=== PATIENT | female | born 1985 | race Caucasian/White ===

== ENCOUNTER 2016-12-18 08:48 | Outpatient (CLI) | payer OTHER ==
--- NOTE | 2016-12-18 10:40 | DIAGNOSTIC IMAGING REPORT ---
PROCEDURE: US COMPLETE PELVIC W/TRANSVAG INDICATION: PELVIC PAIN TECHNIQUE: Transabdominal and endovaginal sanchez scale and color Doppler sonographic images of the female pelvis were obtained. COMPARISON: Pelvic ultrasound 08/12/2014. FINDINGS: TRANSABDOMINAL SCANS: Anteverted uterus. Normal kidneys. TRANSVAGINAL SCANS: Uterus measures 6.8 x 4.6 x 5.4 cm. Myometrium is unremarkable. Endometrium measures 10 mm. Small amount of fluid in the fundal portion of the endometrium. Right ovary measures 7.9 x 3.5 x 9.5 cm with a 7.7 cm dermoid (previously 5.2 cm). Left ovary measures 6.6 x 3.2 x 7.5 cm with a 6.9 cm dermoid (Previously 5.2 cm). There is vascular flow to both ovaries. Small amount of free fluid the cul-de-sac. IMPRESSION: 1. Enlarging bilateral dermoids (7.7 cm on the right and 6.9 cm on the left). 2. Small amount of free fluid in the cul-de-sac
== END 2016-12-18 23:00 | disposition home or self-care (01) ==
LOC: US SRH 08:48
DX: D27.0 Benign neoplasm of right ovary (principal); D27.1 Benign neoplasm of left ovary

== ENCOUNTER 2016-12-31 06:42 | Emergency (ER) | payer OTHER ==
--- NOTE | 2016-12-31 08:01 | ED CLINICAL REPORT ---
Clinical Report - Physicians/Mid Levels [facility] [address] [place] [address] 12/31/2016 6:42 Patient: RADHA BENAVIDES Time Seen: 0645; initial patient contact. Arrived- By private vehicle. Historian- patient. HISTORY OF PRESENT ILLNESS Chief Complaint: ABDOMINAL PAIN. This started last night and is still present. It was abrupt in onset and has been constant but is not gone now. It is described as sharp and cramping and it is described as located in the left lower quadrant and radiating (left back). At its maximum, severity described as moderate. When seen in the E.D., severity described as moderate. Modifying factors- worsened by movement. Relieved by rest. No nausea, loss of appetite, vomiting or diarrhea. No recent travel. Similar symptoms previously: Many times (hx of dermoid cysts. states it feels the same.). Recent medical care: Not recently seen/assessed. REVIEW OF SYSTEMS No constipation, black stools, hematemesis or bloody stools. All systems otherwise negative, except as recorded above. PAST HISTORY See nurses notes. Medications: None. Allergies: No Known Drug Allergy. SOCIAL HISTORY Smoker- current status unknown. No alcohol use or drug use. No recent travel. Is a local resident. ADDITIONAL NOTES The nursing notes have been reviewed. PHYSICAL EXAM Vital Signs: 12/31/2016 06:46 BP: 123/68. HR: 74. RR: 18. O2 saturation: 98%. Temp: 98.6 F. Pain level now: 6/10. Blood pressure normal. Oxygen saturation normal. Appearance: Alert. Oriented X3. No acute distress. CVS: Normal heart rate and rhythm. Heart sounds normal. Pulses normal. Respiratory: No respiratory distress. Breath sounds normal. Chest nontender. Abdomen: Soft. Bowel sounds normal. (mild left lower quandrant tenderness. no masses. no rebound or guarding. no tenderness at mcburney's. negative carrie's). Skin: Skin warm and dry. Normal skin color. No rash. Normal skin turgor. Extremities: Extremities exhibit normal ROM. No lower extremity edema. LABS, X-RAYS, AND EKG Pelvic Sonogram: PROCEDURE: US COMPLETE PELVIC W/TRANSVAG INDICATION: A left-sided pelvic pain, known bilateral ovarian dermoids. TECHNIQUE: Transabdominal and endovaginal sanchez scale and color Doppler sonographic images of the female pelvis were obtained. COMPARISON: 12/18/2016, 08/12/2014, 08/11/2014 CT. FINDINGS: TRANSABDOMINAL SCANS: Anteverted uterus measures about 7.0 5.7 x 4.6 cm. Normal contour and echotexture. The urinary bladder is not filled. Hyperechoic mass is seen in both adnexa adjacent to the ovaries. Normal vascular flow within both ovaries. Small amount of posterior pelvic fluid. TRANSVAGINAL SCANS: The uterus is anteverted in position and has a homogeneous myometrial echotexture. There is a thin flat fluid collection within the endometrium towards the fundus. The endometrium is 6 mm in thickness. The cervix has a normal appearance with a few Nabothian cysts present. The right ovary measures 4.6 x 2.6 x 2.9 cm. Immediately adjacent to, likely arising from the right ovary, there is a round homogeneously hyperechoic mass measuring 7.7 x 5.2 x 5.1 cm. No internal vascularity. The right ovary also contains a peripherally hypervascular round structure measuring about 2.7 cm with heterogeneous internal echoes as to the corpus luteum or hemorrhagic cyst. A small amount of right ramiro ovarian fluid is present. The left ovary measures 5.3 x 2.1 x 3.2 cm and also contains a rounded homogeneously hyperechoic mass measuring 6.4 x 6.2 x 4.1 cm. The left ovary demonstrates normal flow. There is no significant vascularity within the mass. IMPRESSION: 1. No evidence of ovarian torsion. 2. Adnexal masses with known ovarian dermoid tumors. Stable size compared to the most recent prior study and mildly enlarged compared to 2015. Laboratory Tests: UA-Culture if indicated: (ALICIA: 12/31/2016 06:56) ( MsgRcvd 12/31/2016 08:11) Final results Test Result Flag Units (Reference) URINE COLOR YELLOW URINE APPEARANCE CLEAR URINE GLUCOSE NEGATIVE (NEGATIVE) URINE BILIRUBIN NEGATIVE (NEGATIVE) URINE KETONE NEGATIVE (NEGATIVE) URINE SPECIFIC GRAVITY <= 1.005 L (1.010-1.030) URINE PH 6.0 (5.0-8.0) URINE PROTEIN NEGATIVE (NEGATIVE) URINE UROBILINOGEN 1.0 EU/dL (0.2-1.0) URINE NITRITE POSITIVE (NEGATIVE) URINE BLOOD NEGATIVE (NEGATIVE) URINE LEUK ESTERASE NEGATIVE (NEGATIVE) URINE RBC 0-1 rbc/hpf (0-1) URINE WBC 0-1 wbc/hpf (0-1) URINE EPITHELIAL CELLS 0-1 EPI/hpf (0-5) URINE BACTERIA NONE SEEN (NONE SEEN) URINE COMMENT CULTURE INDICATED This is a corrected result 12/31/16 0809:URINE COMMENT previously reported as: CULT NOT INDICATEDURINE CULTURES ARE SET-UP BASED ON THE FOLLOWING CRITERIA:POSITIVE NITRITEPOSITIVE LEUKOCYTE ESTERASEGREATER THAN 10 WHITE BLOOD CELLSMODERATE (2+) OR GREATER BACTERIA CBC w Diff: (ALICIA: 12/31/2016 07:05) ( MsgRcvd 12/31/2016 07:34) Final results Test Result Flag Units (Reference) WHITE BLOOD COUNT 6.1 K/uL (4.5-11.5) RED BLOOD COUNT 4.17 M/uL (4.00-5.20) HEMOGLOBIN 13.2 gm/dL (12.0-16.0) HEMATOCRIT 38.8 % (36.0-46.0) MEAN CELL VOLUME 93 fL (80-100) MEAN CORPUSCULAR HGB 32 pg (26-34) MEAN CORPUSCULAR HGB CONC 34 g/dL (31-37) RED CELL DISTRIBUTION WIDTH 13.8 % (11.6-14.8) PLATELET COUNT 159 K/uL (150-400) NEUTROPHIL % 58.4 % (50-75) LYMPH % 31.5 % (25-40) MONO % 6.7 % (3-14) EOSINOPHIL % 2.8 % (0-4) BASOPHIL % 0.6 % (0-2) CMP: (ALICIA: 12/31/2016 07:05) ( MsgRcvd 12/31/2016 07:59) Final results Test Result Flag Units (Reference) GLUCOSE 97 mg/dL (70-110) BUN 12 mg/dL (7-18) CREATININE 0.7 mg/dL (0.6-1.3) Estimated GFR >60 mL/min Estimated GFR- >60 mL/min Note: Persistent reduction over 3 months in eGFR<60 mL/min/1.73 m2 defines CKD. Patients with eGFR values>=60 mL/min/1.73 m2 may also have CKD if evidence ofpersistent proteinuria. Additional information may be foundat www.[email or web address].org. SODIUM 142 mmol/L (136-145) POTASSIUM 4.0 mmol/L (3.5-5.1) CHLORIDE 107 mmol/L (98-107) CARBON DIOXIDE 25 mmol/L (21-32) CALCIUM 7.9 L mg/dL (8.5-10.1) TOTAL PROTEIN 6.0 L g/dL (6.4-8.2) ALBUMIN 3.5 g/dL (3.3-5.0) BILIRUBIN, TOTAL 0.5 mg/dL (0.0-1.0) ALKALINE PHOSPHATASE 44 L U/L (46-116) AST (SGOT) 12 L U/L (15-37) ALT (SGPT) 18 U/L (12-78) BETA HCG, QUANTITATIVE <1 mIU/mL REFERENCE RANGE:Adult Males: <2 mIU/mLNon- Females: <6 mIU/mL Females:Approximate Approximate hCGGestational Age Range (mIU/mL) 0-1 week 0-501-2 weeks 40-3002-3 weeks 100-54485-0 weeks 500-25537-0 months 5,000-200,0002-3 months 10,000-100,0002nd trimester 3,000-50,0003rd trimester 1,000-50,000 Culture, Urine: (ALICIA: 12/31/2016 06:56) ( MsgRcvd 01/02/2017 08:57) Final results Test Result Flag Units (Reference) CULTURE, URINE DATE: 01/02/17 NO SIGNIFICANT ISOLATION: NO SIGNIFICANT ISOLATION PRELIM REPORT: FINAL REPORT . PROGRESS AND PROCEDURES Course of Care: Patient is a 31-year-old female with history of dermoid cyst presenting for evaluation of left lower quadrant abdominal pain. Labs were studies have been ordered. Patient is agreeable to the treatment plan. Pain medication as been Offered. The patient's workup was remarkable for the findings above. Patient with positive nitrates and urinalysis. Patient will be given antibiotics. The rest of the patient's workup was noted for the findings above. No signs of ovarian torsion. Blood flow to both ovaries are noted to be normal. Discussed with patient workup here in the emergency department including diagnosis, home care, follow-up, and return precautions. All questions have been answered. The patient expressed understanding of these instructions and was agreeable to them. Disposition: Discharged. Condition: good. CLINICAL IMPRESSION Acute left lower quadrant abdominal pain. 12/31/2016 06:46 BP: 123/68. HR: 74. RR: 18. O2 saturation: 98%. Temp: 98.6 F. Pain level now: 6/10. Blood pressure normal. Oxygen saturation normal. Acute urinary tract infection. Ovarian cyst (acute dermoid). INSTRUCTIONS Warnings: GENERAL WARNINGS: Return or contact your physician immediately if your condition worsens or changes unexpectedly, if not improving as expected, or if other problems arise. SPECIFICALLY, return if you develop pain, fever, vomiting, the inability to keep fluids down, blood in vomitus, blood in diarrhea, fainting or lightheadedness. Your Current Medications: CONTINUE TAKING THE FOLLOWING MEDICATIONS: None*. Prescription Medications: Zofran (orally disintegrating tablets) 4 mg: take 1 orally every 8 hours as needed for nausea and vomiting. Dispense ten (10). No refill. Substitution is permissible. Cephalexin 500 mg: take 1 capsule orally every 8 hours for 5 days. No refill. (disp 15 caps) Motrin 600 mg tablets: take 1 tablet orally every 6 hours as needed for pain, stiffness or swelling. Dispense thirty (30). No refill. Substitution is permissible. (take with food) Percocet 5 mg/325 mg: take 1 tablet orally every 6 hours as needed for pain. Dispense twenty (20). No refill. Substitution is permissible. Follow-up: Return to the emergency department as needed. Follow up with your doctor in three days. Reason for referral: recheck today's concerns. Summary of care provided to patient via paper. Screening today revealed the patient's blood pressure to be in the normal range. The patient should follow up with a primary care provider for blood pressure management. Understanding of the discharge instructions verbalized by patient. (Electronically signed by Jorge Ma Dr. 01/03/2017 7:00)
--- NOTE | 2016-12-31 08:01 | ED NURSING NOTES ---
Clinical Report - Nurses [facility] [address] [place] [address] 12/31/2016 6:42 Patient: RADHA BENAVIDES TRIAGE Triage time 06:46. Acuity: LEVEL 3. Chief Complaint: ABDOMINAL PAIN and NAUSEA. --06:53 Ila Poe R.N. 06:46 12/31/16. BP: 123/68 taken on the left arm, while lying. HR: 74 (regular and normal rate). RR: 18 (regular and unlabored). O2 saturation: 98% on room air. Temp: 98.6 F (oral). Pain level now: 12/05. --06:53 Ila Poe R.N. Weight: 63.5 kg stated. Height/Length: 65 inches Per Patient. BMI: 23.3. --06:47 Ila Poe R.N. Medications None. --06:52 Ila Poe R.N. Allergies No Known Drug Allergy. --06:50 Ila Poe R.N. History Arrived by private vehicle. Historian: patient. Unaccompanied. Primary physician (none). This started last night. ( pt c/o LLQ pain radiating to left flank states she has large dermoid cysts and pain is worse before periods and will not go away, states supposed to have surgery to have problem taken care of.). 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 PAST MEDICAL HX: Immunizations: up-to-date. Last normal menstrual period- December 23, 2016. Sexual history - sexually active. Uses control pills. SOCIAL HX: Light tobacco smoker (cigarette)- less than 1/2 a pack per day. Occasional alcohol use. No infectious disease exposure. No known contact with a sick individual. ABUSE ASSESSMENT: No report of abuse. SELF HARM ASSESSMENT: A self harm assessment was performed. The patient answered "no" to the question "Have you recently felt down, depressed, or hopeless?", "Have you noticed less interest or pleasure in doing things?", "Do you have thoughts of harming or killing yourself?", "Are you here because you tried to hurt yourself?", "Have you ever tried to hurt yourself before today?", "Have you recently had thoughts about harming or killing others?" and "Do you have any dangerous items in your possession?". FALL RISK ASSESSMENT: Fall risk assessment completed. No fall risk identified. NUTRITIONAL RISK ASSESSMENT: The nutritional risk assessment revealed no deficiencies. FUNCTIONAL ASSESSMENT: Functional assessment: no impairments noted. LEARNING NEEDS ASSESSMENT: The learning needs assessment revealed no barriers. SKIN INTEGRITY ASSESSMENT: Skin integrity risk assessment completed. No skin integrity risk identified. --06:53 Ila Poe R.N. PROBLEMS: Cellulitis. Ovarian Cyst. Abdominal Pain. Immunizations. LNMP - Last Normal Menstrual Period. --06:52 Ila Poe R.N. ADDITIONAL SURGERIES: . Tubal Ligation. --06:52 Ila Poe R.N. Interventions ID band on patient. To treatment room. --06:53 Ila Poe R.N. PHYSICAL ASSESSMENT Ambulatory to room. GENERAL / NEURO / PSYCH: Alert. Oriented X 4. Appears in pain. HEENT: Mucous membranes are pink. RESPIRATORY: Respirations not labored. Breath sounds within normal limits. CVS: Normal sinus rhythm noted. Capillary refill less than 2 seconds. GI / : Abdomen soft. Abdominal tenderness in the left lower quadrant. Bowel sounds within normal limits. SKIN: Skin is warm and dry. --06:54 Ila Poe R.N. NURSING PROGRESS NOTES Patient gowned. Reassurance given. Two patient identifiers checked. Call light placed in reach. Side rails up x 1. Bed placed in lowest position. Brakes of bed on. Patient ready for evaluation- chart flagged. --06:54 Ila Poe R.N. 07:00 12/31/2016 Site #1 started via IV in the left forearm with an 20g angiocath, with aseptic technique and good blood return; one attempt. Saline lock flushed with 10 mL saline. --07:11 Ila Poe R.N. 07:05 12/31/2016 Started bag #1 1000 mL IV Fluids IV NS (Saline); bolus of 1000 mL wide open then over 1 hour(s) via site #1. Allergies verified and confirmed 5 rights. IV patency established. IV site checked: no pain, redness, or swelling. IV flushed thoroughly pre- and post-medication administration. --07:12 Ila Poe R.N. 07:06 12/31/2016 Morphine IVP 4 mg given over 2 minute(s) via site #1. Allergies verified, confirmed 5 rights and sedative warning given to the patient. IV patency established. IV site checked: no pain, redness, or swelling. IV flushed thoroughly pre- and post-medication administration. IVP given by RN. --07:13 Ila Poe R.N. ( report taken from candi monroe to assume coverage. pt. resting quietly, awaiting US.). --07:22 Danni Jones R.N. US done at bedside. --08:33 Diandra Sommer R.N. 08:25. Reassessment after fluids administered, procedure and medication administered. She is calm and resting quietly. Overall patient status is improved- she states feels better. SKIN: Skin is warm and dry. --08:34 Diandra Sommer R.N. 08:24 12/31/2016 Keflex (Cephalexin) PO Capsules 500 mg given. Allergies verified and confirmed 5 rights. --08:34 Diandra Sommer R.N. 08:24 12/31/2016 Toradol IVP 30 mg given over 2 minute(s) via site #1. Allergies verified and confirmed 5 rights. IV patency established. IV site checked: no pain, redness, or swelling. IV flushed thoroughly pre- and post-medication administration. IVP given by RN. --08:35 Diandra Sommer R.N. 08:25 12/31/2016 IV Fluids IV NS Discontinued: bag #1 completed upon discharge. Total amount infused: 1000 mL. --08:35 Diandra Sommer R.N. 08:27 12/31/2016 Site #1 removed upon discharge. Catheter intact. Bandaid applied. --08:37 Diandra Sommer R.N. DISPOSITION / DISCHARGE Departure time: 824. Condition at departure: improved and stable. No learning barriers present. Discharge instructions provided and reviewed with the patient. Reviewed medication(s). Prescription(s) given to the patient. Patient verbalized understanding. Written instructions provided in Nauruan. The patient was discharged home and accompanied by phoned a friend. She left the Emergency Department ambulatory and via private vehicle. FALL RISK ASSESSMENT: Fall risk assessment completed. No fall risk identified. --08:32 Diandra Sommer R.N. 08:30 12/31/16. BP: 109/64. HR: 51. RR: 16. O2 saturation: 98%. Pain level now: 08/07. --08:32 Diandra Sommer R.N. Locked/Released at 12/31/2016 8:37 by Diandra Sommer R.N.
--- NOTE | 2016-12-31 08:01 | ED ORDER SUMMARY ---
..... Patient: RADHA BENAVIDES OrderSheet [facility] VisitID: [id number] [address] [place] [address] 31y, F Registration Date/Time: 12/31/2016 ORDER SHEET Weight: 63.5 kg (stated) Allergies: No Known Drug Allergy GENERAL ORDERS: US Pelvic Complete w Transvag Urgent (06:54 12/31/2016 Kenrtell Rios) (Ack 6:56 AMcQuoid ER Tech1) (8:13 Milady R.N.) CBC w Diff Urgent (06:55 12/31/2016 Kentrell Rios) (Ack 6:56 AMcQuoid ER Tech1) (6:59 AMcQuoid ER Tech1) CMP Urgent (06:55 12/31/2016 Kentrell Rios) (Ack 6:56 AMcQuoid ER Tech1) (6:59 AMcQuoid ER Tech1) UA-Culture if indicated Urgent (06:55 12/31/2016 Kentrell Rios) (Ack 6:56 AMcQuoid ER Tech1) (6:59 AMcQuoid ER Tech1) Serum Quantitative Urgent (06:55 12/31/2016 Kentrell Rios) (Ack 6:56 AMcQuoid ER Tech1) (6:59 AMcQuoid ER Tech1) Pulse oximeter (06:55 12/31/2016 Kentrell Rios) (Ack 6:56 AMcQuoid ER Tech1) (7:09 Argelia R.N.) MEDICATION ORDERS: Keflex PO 500 mg (NOW) (07:58 12/31/2016 Kentrell Rios) (Ack 8:14 Milady R.NCinthya) (8:34 Milady R.NCinthya) IV FLUIDS: IV NS : initial bolus 1000 mL (1000 mL/hr), then none - for X1 (NOW) (06:54 12/31/2016 Kentrell Rios) (7:12 Argelia R.N.) Morphine IV 4 mg (HIGH ALERT MEDICATION, NOW) (06:54 12/31/2016 Kentrell Rios) (7:13 Argelia R.N.) Toradol IV 30 mg (NOW) (07:47 12/31/2016 Kentrell Rios) (Ack 8:13 Milady Gupta) (8:34 Milady Gupta) ORDER SHEET NOTES: [Electronically signed by Diandra Sommer R.N. (08:37 12/31/2016)] [Electronically signed by Jorge Ma Dr. (07:00 01/03/2017)] [Electronically locked/signed by Diandra Sommer R.N. (08:37 12/31/2016)]
--- NOTE | 2016-12-31 08:01 | ED ORDER SUMMARY ---
..... Patient: RADHA BENAVIDES OrderSheet [facility] VisitID: [id number] [address] [place] [address] 31y, F Registration Date/Time: 12/31/2016 ORDER SHEET Weight: 63.5 kg (stated) Allergies: No Known Drug Allergy GENERAL ORDERS: US Pelvic Complete w Transvag Urgent (06:54 12/31/2016 Kentrell Rios) (Ack 6:56 AMcQuoid ER Tech1) (8:13 Milady R.N.) CBC w Diff Urgent (06:55 12/31/2016 Kentrell Rios) (Ack 6:56 AMcQuoid ER Tech1) (6:59 AMcQuoid ER Tech1) CMP Urgent (06:55 12/31/2016 Kentrell Rios) (Ack 6:56 AMcQuoid ER Tech1) (6:59 AMcQuoid ER Tech1) UA-Culture if indicated Urgent (06:55 12/31/2016 Kentrell Rios) (Ack 6:56 AMcQuoid ER Tech1) (6:59 AMcQuoid ER Tech1) Serum Quantitative Urgent (06:55 12/31/2016 Kentrell Rios) (Ack 6:56 AMcQuoid ER Tech1) (6:59 AMcQuoid ER Tech1) Pulse oximeter (06:55 12/31/2016 Kentrell Rios) (Ack 6:56 AMcQuoid ER Tech1) (7:09 Argelia R.N.) MEDICATION ORDERS: Keflex PO 500 mg (NOW) (07:58 12/31/2016 Kentrell Rios) (Ack 8:14 Milady R.NCinthya) (8:34 Milady R.NCinthya) IV FLUIDS: IV NS : initial bolus 1000 mL (1000 mL/hr), then none - for X1 (NOW) (06:54 12/31/2016 Kentrell Rios) (7:12 Argelia R.N.) Morphine IV 4 mg (HIGH ALERT MEDICATION, NOW) (06:54 12/31/2016 Kentrell Rios) (7:13 Agrelia R.N.) Toradol IV 30 mg (NOW) (07:47 12/31/2016 Kentrell Rios) (Ack 8:13 Milady Gupta) (8:34 Milady Gupta) ORDER SHEET NOTES: [Electronically signed by Diandra Sommer R.N. (08:37 12/31/2016)] [Electronically signed by Jorge Ma Dr. (07:00 01/03/2017)] [Electronically locked/signed by Diandra Sommer R.N. (08:37 12/31/2016)]
--- NOTE | 2016-12-31 09:15 | DIAGNOSTIC IMAGING REPORT ---
PROCEDURE: US COMPLETE PELVIC W/TRANSVAG INDICATION: A left-sided pelvic pain, known bilateral ovarian dermoids. TECHNIQUE: Transabdominal and endovaginal sanchez scale and color Doppler sonographic images of the female pelvis were obtained. COMPARISON: 12/18/2016, 08/12/2014, 08/11/2014 CT. FINDINGS: TRANSABDOMINAL SCANS: Anteverted uterus measures about 7.0 5.7 x 4.6 cm. Normal contour and echotexture. The urinary bladder is not filled. Hyperechoic mass is seen in both adnexa adjacent to the ovaries. Normal vascular flow within both ovaries. Small amount of posterior pelvic fluid. TRANSVAGINAL SCANS: The uterus is anteverted in position and has a homogeneous myometrial echotexture. There is a thin flat fluid collection within the endometrium towards the fundus. The endometrium is 6 mm in thickness. The cervix has a normal appearance with a few Nabothian cysts present. The right ovary measures 4.6 x 2.6 x 2.9 cm. Immediately adjacent to, likely arising from the right ovary, there is a round homogeneously hyperechoic mass measuring 7.7 x 5.2 x 5.1 cm. No internal vascularity. The right ovary also contains a peripherally hypervascular round structure measuring about 2.7 cm with heterogeneous internal echoes as to the corpus luteum or hemorrhagic cyst. A small amount of right ramiro ovarian fluid is present. The left ovary measures 5.3 x 2.1 x 3.2 cm and also contains a rounded homogeneously hyperechoic mass measuring 6.4 x 6.2 x 4.1 cm. The left ovary demonstrates normal flow. There is no significant vascularity within the mass. IMPRESSION: 1. No evidence of ovarian torsion. 2. Adnexal masses with known ovarian dermoid tumors. Stable size compared to the most recent prior study and mildly enlarged compared to 2015.
--- NOTE | 2017-01-03 07:00 | ED MED RECONCILIATION SUMMARY ---
Patient: RADHA BENAVIDES Medication Reconciliation Report Located Within [facility] VisitID: [id number] [address] [place] [address] 31y, F Registration Date/Time: 12/31/2016 Weight: 63.5 kg Height/Length: 65 in. BMI: 23.3 ALLERGIES: No Known Drug Allergy The patient's Home Medications are listed below: NONE. The source(s) of the original Home Medication information: Not obtained. The following Medications were given to the patient in the Emergency Department: IV NS IV Fluids bolus 1000 mL wide open, administered: 12/31/2016 7:05:00 AM Morphine [IVP] IVP 4 mg, administered: 12/31/2016 7:06:00 AM Keflex [PO] PO 500 mg, administered: 12/31/2016 8:24:00 AM Toradol [IVP] IVP 30 mg, administered: 12/31/2016 8:24:00 AM The following Medications were prescribed to the patient: Zofran (orally disintegrating tablets) 4 mg: take 1 orally every 8 hours as needed for nausea and vomiting. Dispense ten (10). No refill. Substitution is permissible. -- Jorge Ma Dr. Cephalexin 500 mg: take 1 capsule orally every 8 hours for 5 days. No refill.(disp 15 caps) -- Jorge Ma Dr. Motrin 600 mg tablets: take 1 tablet orally every 6 hours as needed for pain, stiffness or swelling. Dispense thirty (30). No refill. Substitution is permissible.(take with food) -- Jorge Ma Dr. Percocet 5 mg/325 mg: take 1 tablet orally every 6 hours as needed for pain. Dispense twenty (20). No refill. Substitution is permissible. -- Jorge Ma Dr.
--- NOTE | 2017-01-03 07:00 | ED DISCHARGE INSTRUCTIONS ---
Patient: RADHA BENAVIDES General Instructions [facility] VisitID: [id number] [place] [address] 31y, F Registration Date/Time: 12/31/2016 Acute left lower quadrant abdominal pain. 12/31/2016 06:46 BP: 123/68. HR: 74. RR: 18. O2 saturation: 98%. Temp: 98.6 F. Pain level now: 10. Blood pressure normal. Oxygen saturation normal. Acute urinary tract infection. Ovarian cyst (acute dermoid). INSTRUCTIONS Warnings: GENERAL WARNINGS: Return or contact your physician immediately if your condition worsens or changes unexpectedly, if not improving as expected, or if other problems arise. SPECIFICALLY, return if you develop pain, fever, vomiting, the inability to keep fluids down, blood in vomitus, blood in diarrhea, fainting or lightheadedness. Your Current Medications: CONTINUE TAKING THE FOLLOWING MEDICATIONS: None*. Prescription Medications: Zofran (orally disintegrating tablets) 4 mg: take 1 orally every 8 hours as needed for nausea and vomiting. Dispense ten (10). No refill. Substitution is permissible. Cephalexin 500 mg: take 1 capsule orally every 8 hours for 5 days. No refill. (disp 15 caps) Motrin 600 mg tablets: take 1 tablet orally every 6 hours as needed for pain, stiffness or swelling. Dispense thirty (30). No refill. Substitution is permissible. (take with food) Percocet 5 mg/325 mg: take 1 tablet orally every 6 hours as needed for pain. Dispense twenty (20). No refill. Substitution is permissible. Follow-up: Return to the emergency department as needed. Follow up with your doctor in three days. Reason for referral: recheck today's concerns. Summary of care provided to patient via paper. Screening today revealed the patient's blood pressure to be in the normal range. The patient should follow up with a primary care provider for blood pressure management. Understanding of the discharge instructions verbalized by patient. ADDITIONAL INFORMATION Abdominal Pain, Unknown Cause (Female) The exact cause of your abdominal (stomach) pain is not certain. This does not mean that this is something to worry about, or the right tests were not done. Everyone likes to know the exact cause of the problem, but sometimes with abdominal pain, there is no clear-cut cause, and this could be a good thing. The good news is that your symptoms can be treated, and you will feel better. Your condition does not seem serious now; however, sometimes the signs of a serious problem may take more time to appear. For this reason,it is important for you to watch for any new symptoms, problems,or worsening of your condition. Over the next few days, the abdominal pain may come and go, or be continuous. Other common symptoms can include nausea and vomiting. Sometimes it can be difficult to tell if you feel nauseous, you may just feel bad and not associate that feeling with nausea. Constipation, diarrhea, and a fever may go along with the pain. The pain may continue even if treated correctly over the following days. Depending on how things go, sometimes the cause can become clear and may require further or different treatment. Additional evaluations, medications, or tests may be needed. Home care Your health care provider may prescribe medications for pain, symptoms, or an infection. Follow the health care provider's instructions for taking these medications. General care Rest until your next exam. No strenuous activities. Try to find positions that ease discomfort. A small pillow placed on the abdomen may help relieve pain. Something warm on your abdomen (such as a heating pad) may help, but be careful not to burn yourself. Diet Do not force yourself to eat, especially if having cramps, vomiting, or diarrhea. Water is important so you do not get dehydrated. Soup may also be good. Sports drinks may also help, especially if they are not too acidic. Make sure you don't drink sugary drinks as this can make things worse. Take liquids in small amounts. Do not guzzle them. Caffeine sometimes makes the pain and cramping worse. Avoid dairy products if you have vomiting or diarrhea. Don't eat large amounts at a time. Wait a few minutes between bites. Eat a diet low in fiber (called a low-residue diet). Foods allowed include refined breads, white rice, fruit and vegetable juices without pulp, tender meats. These foods will pass more easily through the intestine. Avoid whole-grain foods, whole fruits and vegetables, meats, seeds and nuts, fried or fatty foods, dairy, alcohol and spicy foods until your symptoms go away. Follow-up care Follow up with your health care provider as instructed, or if your pain does not begin to improve in the next 24 hours. When to seek medical care Seek prompt medical care if any of the following occur: Pain gets worse or moves to the right lower abdomen New or worsening vomiting or diarrhea Swelling of the abdomen Unable to pass stool for more than three days Fever of 100.4F (38C) or higher, or as directed by your healthcare provider. Blood in vomit or bowel movements (dark red or black color) Jaundice (yellow color of eyes and skin) Weakness, dizziness Chest, arm, back, neck or jaw pain Unexpected vaginal bleeding or missed period Call 911 Call emergency services if any of the following occur: Trouble breathing Confusion Fainting or loss of consciousness Rapid heart rate Seizure Bladder Infection,Female (Adult) A bladder infection ("cystitis" or "UTI") usually causes a constant urge to urinate and a burning when passing urine. Urine may be cloudy, smelly or dark. There may be pain in the lower abdomen. A bladder infection occurs when bacteria from the vaginal area enter the bladder opening (urethra). This can occur from sexual intercourse, wearing tight clothing, dehydration and other factors. Home Care: Drink lots of fluids (at least 6-8 glasses a day, unless you must restrict fluids for other medical reasons). This will force the medicine into your urinary system and flush the bacteria out of your body. Avoid sexual intercourse until your symptoms are gone. Avoid caffeine, alcohol and spicy foods. These can irritate the bladder. A bladder infection is treated with antibiotics. You may also be given Pyridium (generic = phenazopyridine) to reduce the burning sensation. This medicine will cause your urine to become a bright orange color. The orange urine may stain clothing. You may wear a pad or panty-liner to protect clothing. Preventing Future Infections: Always wipe from front to back after a bowel movement. Keep the genital area clean and dry. Drink plenty of fluids each day to avoid dehydration. Both sexual partners should wash before intercourse. Urinate right after intercourse to flush out the bladder. Wear cotton underwear and cotton-lined panty hose; avoid tight-fitting pants. If you are on control pills and are having frequent bladder infections, discuss with your doctor. Follow Up: Return to this facility or see your doctor if ALL symptoms are not gone after three days of treatment. Get Prompt Medical Attention if any of the following occur: Fever of 100.4F (38C) or higher, or as directed by your healthcare provider No improvement by the third day of treatment Increasing back or abdominal pain Repeated vomiting; unable to keep medicine down Weakness, dizziness or fainting Vaginal discharge Pain, redness or swelling in the labia (outer vaginal area) Ovarian Cyst The ovary is a small organ located on each side of the uterus. During each menstrual cycle a tiny egg sac forms in the ovary. If the egg is released but does not occur, this sac usually dissolves. Sometimes, the sac may fill with fluid. It then enlarges into a painful cyst. Usually the cyst will rupture or shrink on its own. In either case, the pain gradually goes away over the next 1-3 days. If the cyst does not shrink or rupture, it may cause continued pain. Home Care: Rest in bed and avoid heavy exertion until you are feeling better. Heat to the lower abdomen usually helps (heating pad or hot packs -- a small towel soaked in hot water). You may use acetaminophen (Tylenol) or ibuprofen (Motrin, Advil) to control pain, unless another pain medicine was prescribed. [NOTE: If you have chronic liver or kidney disease or ever had a stomach ulcer or GI bleeding, talk with your doctor before using these medicines.] Follow Up: See your doctor within the next 2-3 days if your pain doesnt improve. Otherwise, follow up with your doctor after your next period or as directed by our staff. Get Prompt Medical Attention if any of the following occur: Pain worsens or fails to respond to the above measures Fever of 100.4F (38C) or higher, or as directed by your healthcare provider Heavy vaginal bleeding (soaking one pad an hour for three hours) You feel weak or dizzy Fainting Passage of a pink or sanchez tissue with menstrual bleeding Pelvic Pain, Uncertain Cause Based on your visit today, the exact cause of your pelvic pain is not certain. But your condition does not appear to be serious at this time. However, the signs of a serious problem may take more time to appear. Therefore, it is important for you to watch for any new symptoms or worsening of your condition. Home Care: Rest until you are feeling better. Avoid sexual intercourse until your pain goes away. You may use acetaminophen (Tylenol) or ibuprofen (Motrin, Advil) to control pain, unless another medicine was prescribed. [NOTE: If you have chronic liver or kidney disease or ever had a stomach ulcer or GI bleeding, talk with your doctor before using these medicines.] Follow Up with your doctor as advised. If a culture test was taken, call in two days for the results. If the culture is positive, you will be given more advice at that time. Otherwise, follow-up with your doctor or this facility as instructed. Get Prompt Medical Attention if any of the following occur: Fever of 100.4F (38C) or higher, or as directed by your healthcare provider Vaginal discharge Worsening pain Weakness, dizziness or fainting Unexpected vaginal bleeding or passage of sanchez or white tissue from the vagina Pain that moves to the right lower abdomen Ondansetron Oral disintegrating tablet What is this medicine? ONDANSETRON (on RUBY se eddie) is used to treat nausea and vomiting caused by chemotherapy. It is also used to prevent or treat nausea and vomiting after surgery. How should I use this medicine? These tablets are made to dissolve in the mouth. Do not try to push the tablet through the foil backing. With dry hands, peel away the foil backing and gently remove the tablet. Place the tablet in the mouth and allow it to dissolve, then swallow. While you may take these tablets with water, it is not necessary to do so. Talk to your soil conservation teacher regarding the use of this medicine in children. Special care may be needed. What side effects may I notice from receiving this medicine? Side effects that you should report to your doctor or health healthcare educator as soon as possible: allergic reactions like skin rash, itching or hives, swelling of the face, lips, or tongue breathing problems dizziness fast or irregular heartbeat feeling faint or lightheaded, falls fever and chills swelling of the hands and feet tightness in the chest Side effects that usually do not require medical attention (report to your doctor or health healthcare educator if they continue or are bothersome): constipation or diarrhea headache What may interact with this medicine? Do not take this medicine with any of the following medications: -apomorphine -cisapride -dofetilide -dronedarone -pimozide -thioridazine -ziprasidone This medicine may also interact with the following medications: -carbamazepine -phenytoin -rifampicin -tramadol -other medicines that prolong the QT interval (cause an abnormal heart rhythm) What if I miss a dose? If you miss a dose, take it as soon as you can. If it is almost time for your next dose, take only that dose. Do not take double or extra doses. Where should I keep my medicine? Keep out of the reach of children. Store between 2 and 30 degrees C (36 and 86 degrees F). Throw away any unused medicine after the expiration date. What should I tell my health care provider before I take this medicine? They need to know if you have any of these conditions: heart disease history of irregular heartbeat liver disease low levels of magnesium or potassium in the blood an unusual or allergic reaction to ondansetron, granisetron, other medicines, foods, dyes, or preservatives or trying to get breast-feeding What should I watch for while using this medicine? Check with your doctor or health healthcare educator as soon as you can if you have any sign of an allergic reaction. Cephalexin Monohydrate Oral tablet What is this medicine? CEPHALEXIN (sef a CLAUDIA in) is a cephalosporin antibiotic. It is used to treat certain kinds of bacterial infections It will not work for colds, flu, or other viral infections. How should I use this medicine? Take this medicine by mouth with a full glass of water. Follow the directions on the prescription label. This medicine can be taken with or without food. Take your medicine at regular intervals. Do not take your medicine more often than directed. Take all of your medicine as directed even if you think you are better. Do not skip doses or stop your medicine early. Talk to your soil conservation teacher regarding the use of this medicine in children. While this drug may be prescribed for selected conditions, precautions do apply. What side effects may I notice from receiving this medicine? Side effects that you should report to your doctor or health healthcare educator as soon as possible: allergic reactions like skin rash, itching or hives, swelling of the face, lips, or tongue breathing problems pain or trouble passing urine redness, blistering, peeling or loosening of the skin, including inside the mouth severe or watery diarrhea unusually weak or tired yellowing of the eyes, skin Side effects that usually do not require medical attention (report to your doctor or health healthcare educator if they continue or are bothersome): gas or heartburn genital or anal irritation headache joint or muscle pain nausea, vomiting What may interact with this medicine? probenecid some other antibiotics What if I miss a dose? If you miss a dose, take it as soon as you can. If it is almost time for your next dose, take only that dose. Do not take double or extra doses. There should be at least 4 to 6 hours between doses. Where should I keep my medicine? Keep out of the reach of children. Store at room temperature between 59 and 86 degrees F (15 and 30 degrees C). Throw away any unused medicine after the expiration date. What should I tell my health care provider before I take this medicine? They need to know if you have any of these conditions: kidney disease stomach or intestine problems, especially colitis an unusual or allergic reaction to cephalexin, other cephalosporins, penicillins, other antibiotics, medicines, foods, dyes or preservatives or trying to get breast-feeding What should I watch for while using this medicine? Tell your doctor or health healthcare educator if your symptoms do not begin to improve in a few days. Do not treat diarrhea with over the counter products. Contact your doctor if you have diarrhea that lasts more than 2 days or if it is severe and watery. If you have diabetes, you may get a false-positive result for sugar in your urine. Check with your doctor or health healthcare educator. Ibuprofen Oral tablet What is this medicine? IBUPROFEN (eye BYOO proe fen) is a non-steroidal anti-inflammatory drug (NSAID). It is used for dental pain, fever, headaches or migraines, osteoarthritis, rheumatoid arthritis, or painful monthly periods. It can also relieve minor aches and pains caused by a cold, flu, or sore throat. How should I use this medicine? Take this medicine by mouth with a glass of water. Follow the directions on the prescription label. Take this medicine with food if your stomach gets upset. Try to not lie down for at least 10 minutes after you take the medicine. Take your medicine at regular intervals. Do not take your medicine more often than directed. A special MedGuide will be given to you by the pharmacist with each prescription and refill. Be sure to read this information carefully each time. Talk to your soil conservation teacher regarding the use of this medicine in children. Special care may be needed. What side effects may I notice from receiving this medicine? Side effects that you should report to your doctor or health healthcare educator as soon as possible: allergic reactions like skin rash, itching or hives, swelling of the face, lips, or tongue black or bloody stools, blood in the urine or in vomit breathing problems changes in vision chest pain general ill feeling or flu-like symptoms nausea or vomiting redness, blistering, peeling or loosening of the skin, including inside the mouth slurred speech or weakness on one side of the body stomach pain unexplained weight gain or swelling unusually weak or tired yellowing of eyes or skin Side effects that usually do not require medical attention (report to your doctor or health healthcare educator if they continue or are bothersome): constipation or diarrhea dizziness gas or heartburn stomach upset What may interact with this medicine? Do not take this medicine with any of the following medications: cidofovir ketorolac methotrexate pemetrexed This medicine may also interact with the following medications: alcohol aspirin diuretics lithium other drugs for inflammation like prednisone warfarin What if I miss a dose? If you miss a dose, take it as soon as you can. If it is almost time for your next dose, take only that dose. Do not take double or extra doses. Where should I keep my medicine? Keep out of the reach of children. Store at room temperature between 15 and 30 degrees C (59 and 86 degrees F). Keep container tightly closed. Throw away any unused medicine after the expiration date. What should I tell my health care provider before I take this medicine? They need to know if you have any of these conditions: asthma cigarette smoker drink more than 3 alcohol containing drinks a day heart disease or circulation problems such as heart failure or leg edema (fluid retention) high blood pressure kidney disease liver disease stomach bleeding or ulcers an unusual or allergic reaction to ibuprofen, aspirin, other NSAIDS, other medicines, foods, dyes, or preservatives or trying to get breast-feeding What should I watch for while using this medicine? Tell your doctor or healthcare professional if your symptoms do not start to get better or if they get worse. This medicine does not prevent heart attack or stroke. In fact, this medicine may increase the chance of a heart attack or stroke. The chance may increase with longer use of this medicine and in people who have heart disease. If you take aspirin to prevent heart attack or stroke, talk with your doctor or health healthcare educator. Do not take other medicines that contain aspirin, ibuprofen, or naproxen with this medicine. Side effects such as stomach upset, nausea, or ulcers may be more likely to occur. Many medicines available without a prescription should not be taken with this medicine. This medicine can cause ulcers and bleeding in the stomach and intestines at any time during treatment. Ulcers and bleeding can happen without warning symptoms and can cause . To reduce your risk, do not smoke cigarettes or drink alcohol while you are taking this medicine. You may get drowsy or dizzy. Do not drive, use machinery, or do anything that needs mental alertness until you know how this medicine affects you. Do not stand or sit up quickly, especially if you are an older patient. This reduces the risk of dizzy or fainting spells. This medicine can cause you to bleed more easily. Try to avoid damage to your teeth and gums when you brush or floss your teeth. Oxycodone Hydrochloride, Acetaminophen Oral tablet What is this medicine? ACETAMINOPHEN; OXYCODONE (a set a RUT aby fen; ox i KOE done) is a pain reliever. It is used to treat mild to moderate pain. How should I use this medicine? Take this medicine by mouth with a full glass of water. Follow the directions on the prescription label. Take your medicine at regular intervals. Do not take your medicine more often than directed. Talk to your soil conservation teacher regarding the use of this medicine in children. Special care may be needed. Patients over 65 years old may have a stronger reaction and need a smaller dose. What side effects may I notice from receiving this medicine? Side effects that you should report to your doctor or health healthcare educator as soon as possible: allergic reactions like skin rash, itching or hives, swelling of the face, lips, or tongue breathing difficulties, wheezing confusion light headedness or fainting spells severe stomach pain yellowing of the skin or the whites of the eyes Side effects that usually do not require medical attention (report to your doctor or health healthcare educator if they continue or are bothersome): dizziness drowsiness nausea vomiting What may interact with this medicine? alcohol antihistamines barbiturates like amobarbital, butalbital, butabarbital, methohexital, pentobarbital, phenobarbital, thiopental, and secobarbital benztropine drugs for bladder problems like solifenacin, trospium, oxybutynin, tolterodine, hyoscyamine, and methscopolamine drugs for breathing problems like ipratropium and tiotropium drugs for certain stomach or intestine problems like propantheline, homatropine methylbromide, glycopyrrolate, atropine, belladonna, and dicyclomine general anesthetics like etomidate, ketamine, nitrous oxide, propofol, desflurane, enflurane, halothane, isoflurane, and sevoflurane medicines for depression, anxiety, or psychotic disturbances medicines for sleep muscle relaxants naltrexone narcotic medicines (opiates) for pain phenothiazines like perphenazine, thioridazine, chlorpromazine, mesoridazine, fluphenazine, prochlorperazine, promazine, and trifluoperazine scopolamine tramadol trihexyphenidyl What if I miss a dose? If you miss a dose, take it as soon as you can. If it is almost time for your next dose, take only that dose. Do not take double or extra doses. Where should I keep my medicine? Keep out of the reach of children. This medicine can be abused. Keep your medicine in a safe place to protect it from theft. Do not share this medicine with anyone. Selling or giving away this medicine is dangerous and against the law. Store at room temperature between 20 and 25 degrees C (68 and 77 degrees F). Keep container tightly closed. Protect from light. This medicine may cause accidental overdose and if it is taken by other adults, children, or pets. Flush any unused medicine down the toilet to reduce the chance of harm. Do not use the medicine after the expiration date. What should I tell my health care provider before I take this medicine? They need to know if you have any of these conditions: brain tumor Crohn's disease, inflammatory bowel disease, or ulcerative colitis drink more than 3 alcohol containing drinks per day drug abuse or addiction head injury heart or circulation problems kidney disease or problems going to the bathroom liver disease lung disease, asthma, or breathing problems an unusual or allergic reaction to acetaminophen, oxycodone, other opioid analgesics, other medicines, foods, dyes, or preservatives or trying to get breast-feeding What should I watch for while using this medicine? Tell your doctor or health healthcare educator if your pain does not go away, if it gets worse, or if you have new or a different type of pain. You may develop tolerance to the medicine. Tolerance means that you will need a higher dose of the medication for pain relief. Tolerance is normal and is expected if you take this medicine for a long time. Do not suddenly stop taking your medicine because you may develop a severe reaction. Your body becomes used to the medicine. This does NOT mean you are addicted. Addiction is a behavior related to getting and using a drug for a non-medical reason. If you have pain, you have a medical reason to take pain medicine. Your doctor will tell you how much medicine to take. If your doctor wants you to stop the medicine, the dose will be slowly lowered over time to avoid any side effects. You may get drowsy or dizzy. Do not drive, use machinery, or do anything that needs mental alertness until you know how this medicine affects you. Do not stand or sit up quickly, especially if you are an older patient. This reduces the risk of dizzy or fainting spells. Alcohol may interfere with the effect of this medicine. Avoid alcoholic drinks. There are different types of narcotic medicines (opiates) for pain. If you take more than one type at the same time, you may have more side effects. Give your health care provider a list of all medicines you use. Your doctor will tell you how much medicine to take. Do not take more medicine than directed. Call emergency for help if you have problems breathing. The medicine will cause constipation. Try to have a bowel movement at least every 2 to 3 days. If you do not have a bowel movement for 3 days, call your doctor or health healthcare educator. Do not take Tylenol (acetaminophen) or medicines that have acetaminophen with this medicine. Too much acetaminophen can be very dangerous. Many nonprescription medicines contain acetaminophen. Always read the labels carefully to avoid taking more acetaminophen. You have been given the following additional information: Abdominal Pain, Unknown Cause, (Female) Bladder Infection, Female (Adult) Ovarian Cyst Pelvic Pain, Unknown Cause Ondansetron Oral disintegrating tablet Cephalexin Monohydrate Oral tablet Ibuprofen Oral tablet Oxycodone Hydrochloride, Acetaminophen Oral tablet (Electronically signed by Jorge Ma Dr. 01/03/2017 7:00)
--- NOTE | 2017-01-03 07:00 | ED MAR SUMMARY ---
..... Medication Administration Record [facility] [address] [place] [address] Patient: RADHA BENAVIDES Visit ID: [id number] 31y, F Weight: 63.5 kg Height/Length: 65 in BMI: 23.3 ALLERGIES: No Known Drug Allergy Start 07:05 12/31/2016 Ila Poe R.N., Stop 08:25 12/31/2016 Diandra Sommer R.N. Medication Administered: IV NS (SALINE), Dose: IV Fluids over 1 hour(s), Bolus: 1000 mL wide open, Dispensed: 1000 mL bag, Site: #1 left forearm. Medication Ordered: IV NS : initial bolus 1000 mL (1000 mL/hr), then none - for X1 (NOW). Given 07:12/31/2016 Ila Poe R.N. Medication Administered: MORPHINE [IVP], Dose: 4 mg IVP over 2 minute(s), Site: #1 left forearm. Medication Ordered: Morphine IV 4 mg (HIGH ALERT MEDICATION, NOW). Given 08:24 12/31/2016 Diandra Sommer R.N. Medication Administered: TORADOL [IVP], Dose: 30 mg IVP over 2 minute(s), Site: #1 left forearm. Medication Ordered: Toradol IV 30 mg (NOW). Given 08:24 12/31/2016 Diandra Sommer R.N. Medication Administered: KEFLEX [PO] (CEPHALEXIN), Dose: 500 mg Capsules PO. Medication Ordered: Keflex PO 500 mg (NOW).
--- NOTE | 2017-01-03 07:00 | ED MAR SUMMARY ---
..... Medication Administration Record [facility] [address] [place] [address] Patient: RADHA BENAVIDES Visit ID: [id number] 31y, F Weight: 63.5 kg Height/Length: 65 in BMI: 23.3 ALLERGIES: No Known Drug Allergy Start 07:05 12/31/2016 Ila Poe R.N., Stop 08:25 12/31/2016 Diandra Sommer R.N. Medication Administered: IV NS (SALINE), Dose: IV Fluids over 1 hour(s), Bolus: 1000 mL wide open, Dispensed: 1000 mL bag, Site: #1 left forearm. Medication Ordered: IV NS : initial bolus 1000 mL (1000 mL/hr), then none - for X1 (NOW). Given 07:12/31/2016 Ila Poe R.N. Medication Administered: MORPHINE [IVP], Dose: 4 mg IVP over 2 minute(s), Site: #1 left forearm. Medication Ordered: Morphine IV 4 mg (HIGH ALERT MEDICATION, NOW). Given 08:24 12/31/2016 Diandra Sommer R.N. Medication Administered: TORADOL [IVP], Dose: 30 mg IVP over 2 minute(s), Site: #1 left forearm. Medication Ordered: Toradol IV 30 mg (NOW). Given 08:24 12/31/2016 Diandra Sommer R.N. Medication Administered: KEFLEX [PO] (CEPHALEXIN), Dose: 500 mg Capsules PO. Medication Ordered: Keflex PO 500 mg (NOW).
--- NOTE | 2017-01-03 07:00 | ED MED RECONCILIATION SUMMARY ---
Patient: RADHA BENAVIDES Medication Reconciliation Report [facility] VisitID: [id number] [address] [place] [address] 31y, F Registration Date/Time: 12/31/2016 Weight: 63.5 kg Height/Length: 65 in. BMI: 23.3 ALLERGIES: No Known Drug Allergy The patient's Home Medications are listed below: NONE. The source(s) of the original Home Medication information: Not obtained. The following Medications were given to the patient in the Emergency Department: IV NS IV Fluids bolus 1000 mL wide open, administered: 12/31/2016 7:05:00 AM Morphine [IVP] IVP 4 mg, administered: 12/31/2016 7:06:00 AM Keflex [PO] PO 500 mg, administered: 12/31/2016 8:24:00 AM Toradol [IVP] IVP 30 mg, administered: 12/31/2016 8:24:00 AM The following Medications were prescribed to the patient: Zofran (orally disintegrating tablets) 4 mg: take 1 orally every 8 hours as needed for nausea and vomiting. Dispense ten (10). No refill. Substitution is permissible. -- Jorge Ma Dr. Cephalexin 500 mg: take 1 capsule orally every 8 hours for 5 days. No refill.(disp 15 caps) -- Jorge Ma Dr. Motrin 600 mg tablets: take 1 tablet orally every 6 hours as needed for pain, stiffness or swelling. Dispense thirty (30). No refill. Substitution is permissible.(take with food) -- Jorge Ma Dr. Percocet 5 mg/325 mg: take 1 tablet orally every 6 hours as needed for pain. Dispense twenty (20). No refill. Substitution is permissible. -- Jorge Ma Dr.
== END 2016-12-31 08:25 | disposition home or self-care (01) ==
LOC: ED SRH 06:42
DX: N39.0 Urinary tract infection, site not specified (principal); D27.9 Benign neoplasm of unspecified ovary; R10.32 Left lower quadrant pain
CPT/HCPCS: 90004; 90100; 90197; 90469; 95059